=== PATIENT | female | born 1980 | race Caucasian/White ===

== ENCOUNTER 2018-07-24 09:40 | Emergency (ER) | payer MEDICAID, SELFPAY ==
[2018-07-24 09:41] VITALS: BP 122/74; PULSE 103; RESP 18; TEMP 37.1; O2SAT 98; BMI 27.4
--- NOTE | 2018-07-24 09:52 | RAD_ITS ---
STUDY: X-RAY CHEST REASON FOR EXAM: Female, 38 years old. Cough and fever. TECHNIQUE: PA and lateral views of the chest. COMPARISON: Comparison is made with prior examination dated May 05, 2015. FINDINGS: There is evidence of bilateral breast surgery. The lungs are clear and expanded. There is no demonstrated pleural abnormality. Normal size heart. Normal mediastinum and terri. Normal visualized pulmonary arteries. Normal visualized aortic arch and descending thoracic aorta. Normal visualized thoracic spine. Normal visualized ribs, clavicles, and shoulders. There is no demonstrated abnormality of the visualized soft tissue structures of the upper abdomen. RAD/Chest PA and Lateral IMPRESSION: Normal x-ray examination of the chest. Electronically Signed: Dave Rod MD at 10:24 EST , Service support ,
--- NOTE | 2018-07-24 09:59 | ED.DCSUM_ITS ---
- ER Visit Summary Date of Service: 07/24/18 Chief Complaint: Cough and fever History of Present Illness: The patient is a 38 F past medical history of prior breast cancer for which she had both bilateral mastectomies and hysterectomy. Patient states that yesterday she started having a cough and fever high as 103. With body aches and sore throat. She did get an influenza vaccination this year. She denies any nausea vomiting or diarrhea she denies any dysuria. Cough is productive. Physical Examination: Vital signs are stable. Afebrile. Temperature is 98. Pulse ox 98 on room air no hypoxia. No distress. HEENT exam TMs normal bilaterally. Posterior pharynx minimal erythema. No exudate. No swelling. No trouble breathing or swallowing. No stridor. No drooling. Airway intact. Neck nontender. No lymphadenopathy. No meningismus. Lungs clear to auscultation bilaterally. Dry cough. No rales, rhonchi or wheezing. Equal and symmetrical. Heart regular rhythm rate about 100 no murmur. Abdomen soft nontender. Moving all 4 extremities. Calves no edema. Back nontender. Skin no rashes. Neurologically awake alert with no focal motor deficits. Test Results: Chest x-ray 2 views shows no acute abnormality. No infiltrate. I did go over the films with the patient and her significant other. Emergency Department Course and Treatment: Clinically patient sounds like acute influenza. I am obtaining a chest x-ray to evaluate for possible pneumonia. Repeat exam patient was doing well at 1020 and is comfortable being discharged home. Treatment Plan: Fluids and rest. Tylenol and Motrin for fever and body aches. Follow-up as needed or return if worse. Disposition: Discharge Impression: Acute influenza This note was generated with [employer] dictation software. It may contain incorrect words, spelling, and punctuation that were not noted in review of the chart prior to signing ED Disposition - Plan for ED Patient: Disposition: Home or Assisted Living Instructions: ED Flu Referrals: Paige Miguel MD [Primary Care Provider] - 3-5 Days if not improving Additional Instructions: Plenty of fluids and rest. Tylenol and Motrin for fever and body aches. Follow-up with not improving or return to the ER if feeling a lot worse.
--- NOTE | 2018-07-24 10:06 | DCINST.ED_ITS ---
ED Disposition - Plan for ED Patient: Disposition: Home or Assisted Living Instructions: ED Flu Referrals: Paige Miguel MD [Primary Care Provider] - 3-5 Days if not improving Additional Instructions: Plenty of fluids and rest. Tylenol and Motrin for fever and body aches. Follow-up with not improving or return to the ER if feeling a lot worse.
== END 2018-07-24 10:27 | disposition home or self-care (01) ==
PROVIDERS: Emergency Provider Emergency Medicine; Family Provider Family Medicine; PCP Family Medicine
DX: J11.1 Influenza due to unidentified influenza virus with other respiratory manifestations (principal); Z85.3 Personal history of malignant neoplasm of breast; Z90.710 Acquired absence of both cervix and uterus
CPT/HCPCS: 71046; 99282

== ENCOUNTER → 2019-04-13 17:26 | Outpatient (CLI) | payer MEDICAID, SELFPAY ==
[2019-04-13 15:52] VITALS: BMI 27.4
[2019-04-20 09:45] LABS: HPV APTIMA, High Risk Negative (Negative)
== END ==
PROVIDERS: Referring Provider Obstetrics & Gynecology; Visit Provider Obstetrics & Gynecology
DX: Z12.4 Encounter for screening for malignant neoplasm of cervix (principal); R30.0 Dysuria
CPT/HCPCS: 87077; 87086; 87088; 87624; 88175; G0145

== ENCOUNTER → 2019-04-27 06:45 | Outpatient (CLI) | payer MEDICAID, SELFPAY ==
[2019-04-13 15:52] VITALS: BMI 27.4
[2019-04-27 08:00] LABS: AST(SGOT) 9 U/L (15-37); Alanine Aminotransfer ALT/SGPT 16 U/L (13-56); Albumin, Serum 3.9 g/dL (3.2-5.0); Alkaline Phosphatase 80 U/L (45-117); Anion Gap 7 (5-15); BUN 13 mg/dL (7-18); BUN/Creat Ratio 17.3 RATIO (10-20); Calcium,Total 9.1 mg/dL (8.5-10.1); Chloride 107 mmol/L (98-107); Cholesterol 223 mg/dL (200); Creatinine, Serum 0.75 mg/dL (0.55-1.02); EST Glomerular Filtration Rate 92 mL/min (>60); Est Glom Filt Rate - Afr Amer 111 mL/min (>60); Globulin 3.8 g/dL (2.2-4.2); Glucose 102 mg/dL (74-106); High Density Lipoprotein 48 mg/dL; Protein, Total 7.7 g/dL (6.4-8.2); Sodium Level 142 mmol/L (136-145); T4 Free Direct 0.73 ng/dL (0.76-1.46); Thyroid Stim Hormone (TSH) 4.37 uIU/mL (0.358-3.74); Triglycerides 124 mg/dL; Very Low Density Lipoprotein 25 mg/dL (5-40)
[2019-04-30 16:28] LABS: Vitamin D 1,25-Dihydroxy 35.8 pg/mL (19.9-79.3)
== END ==
PROVIDERS: Family Provider Family Medicine; PCP Family Medicine; Referring Provider Obstetrics & Gynecology; Visit Provider Obstetrics & Gynecology
DX: R30.0 Dysuria (principal); C50.919 Malignant neoplasm of unspecified site of unspecified female breast; Z13.220 Encounter for screening for lipoid disorders
CPT/HCPCS: 36415; 80053; 80061; 82652; 84439; 84443; 86304

== ENCOUNTER → 2019-12-08 16:35 | Outpatient (CLI) | payer MEDICAID, SELFPAY ==
[2019-12-08 12:09] VITALS: BMI 29.5
== END ==
PROVIDERS: PCP Family Medicine; Referring Provider Obstetrics & Gynecology; Visit Provider Obstetrics & Gynecology
DX: R30.0 Dysuria (principal)
CPT/HCPCS: 87077; 87086; 87088

== ENCOUNTER → 2019-12-13 12:30 | Outpatient (CLI) | payer MEDICAID, SELFPAY ==
[2019-12-08 12:09] VITALS: BMI 29.5
--- NOTE | 2019-12-13 12:31 | US_ITS ---
STUDY: ULTRASOUND OF THE FEMALE PELVIS - COMPLETE REASON FOR EXAM: Female, 39 years old. PELVIC PAIN LMP: Unknown. TECHNIQUE: Transabdominal and Transvaginal TECHNICAL QUALITY: Adequate. COMPARISON: None. FINDINGS: The uterus is retroflexed and is in a midline position. The uterus measures 5.6 x 3.7 x 2.9 cm. Normal uterine cervix. The endometrium measures 4 mm in thickness, and is hyperechoic. There is no demonstrated endometrial mass. There is a 1.7 cm fibroid. I.U.D. - The patient does not have an I.U.D. Both ovaries have been previously removed. There is no fluid in the cul-de-sac. The bladder is sonographically normal US/Pelvic (Non ) IMPRESSION: Small uterine fibroid, otherwise unremarkable study, both ovaries have been previously removed Electronically Signed: Joe Merritt MD at 13:54 EDT , Service support ,
--- NOTE | 2019-12-13 12:31 | US_ITS ---
STUDY: ULTRASOUND OF THE FEMALE PELVIS - COMPLETE REASON FOR EXAM: Female, 39 years old. PELVIC PAIN LMP: Unknown. TECHNIQUE: Transabdominal and Transvaginal TECHNICAL QUALITY: Adequate. COMPARISON: None. FINDINGS: The uterus is retroflexed and is in a midline position. The uterus measures 5.6 x 3.7 x 2.9 cm. Normal uterine cervix. The endometrium measures 4 mm in thickness, and is hyperechoic. There is no demonstrated endometrial mass. There is a 1.7 cm fibroid. I.U.D. - The patient does not have an I.U.D. Both ovaries have been previously removed. There is no fluid in the cul-de-sac. The bladder is sonographically normal US/Transvaginal Non- IMPRESSION: Small uterine fibroid, otherwise unremarkable study, both ovaries have been previously removed Electronically Signed: Joe Merritt MD at 13:54 EDT , Service support ,
--- NOTE | 2019-12-13 12:31 | US_ITS ---
STUDY: THYROID ULTRASOUND REASON FOR EXAM: Female, 39 years old. HYPOTHYROIDISM TECHNIQUE: Ultrasound evaluation of the thyroid was performed with real-time and static cr-scale imaging. COMPARISON: None. FINDINGS: RIGHT LOBE: The right lobe of the thyroid gland measures 4.8 x 1.2 x 1.5 cm. There is a homogeneous echotexture. There are no demonstrated solid, cystic or complex lesions. LEFT LOBE: The left lobe of the thyroid gland measures 4.0 x 1.2 x 1.4 cm. There is a homogeneous echotexture. There is an complex predominantly hypoechoic 1.1 x 0.9 x 0.8 cm nodule. ISTHMUS: The isthmus measures 3 mm. The regional lymph nodes are normal. US/Thyroid IMPRESSION: Normal sized homogeneous thyroid gland with a hypoechoic 1.1 cm nodule in the left lobe. Sonography cannot distinguish between benign and aggressive nodules. Since there are no previous studies available for comparison, there are a couple of options for follow-up. A six-month follow-up could be performed to assess stability. A thyroid uptake study could also performed to assess the uptake characteristics of this nodule. Electronically Signed: Joe Merritt MD at 14:00 EDT , Service support ,
== END ==
PROVIDERS: PCP Family Medicine; Referring Provider Obstetrics & Gynecology; Visit Provider Obstetrics & Gynecology
DX: R10.2 Pelvic and perineal pain (principal); E01.0 Iodine-deficiency related diffuse (endemic) goiter
CPT/HCPCS: 76536; 76830; 76856

== ENCOUNTER → 2019-12-16 15:37 | Outpatient (CLI) | payer MEDICAID, SELFPAY ==
[2019-12-08 12:09] VITALS: BMI 29.5
[2019-12-16 16:12] LABS: Absolute Lymphocyte Count 1.74 X10^3/uL (0.83-4.51); Absolute Neutrophil Count 4.3 X10^3/uL (2.0-7.7); Basophil# 0.04 X10^3/uL; Basophil% 0.6 % (0-1); Eosinophil# 0.16 X10^3/uL; Eosinophils% 2.4 % (0-5); Hematocrit 37.9 % (37-47); Hemoglobin 11.9 g/dL (12.0-15.0); Lymphocyte # 1.74 X10^3/ul (4.0); Lymphocyte % 26.3 % (19-41); Mean Corp Hgb Conc 31.4 g/dL (32-36); Mean Corpuscular Hgb 29.9 pg (27.0-32.0); Mean Corpuscular Volume 95.2 fL (81-99); Mean Platelet Vol. 10.9 fl (6.2-12.0); Monocyte# 0.34 X10^3/uL; Monocyte% 5.1 % (0-10); NRBC Flagged by Analyzer 0 % (0-5); Neutrophil # 4.31 X10^3/uL (2.7-7.7); Neutrophil % 65.3 % (47-70); Platelet Count 213 K/mm3 (150-450); RBC Distribution Width CV 13.2 % (11.6-14.6); RBC Distribution Width SD 45.6 fl (35.1-43.9); Red Blood Count 3.98 M/mm3 (4.2-5.4); White Blood Count 6.6 K/mm3 (4.4-11.0)
[2019-12-16 17:27] LABS: Thyroid Stim Hormone (TSH) 1.38 uIU/mL (0.358-3.74)
== END ==
PROVIDERS: PCP Family Medicine; Referring Provider Obstetrics & Gynecology; Visit Provider Obstetrics & Gynecology
DX: R10.2 Pelvic and perineal pain (principal); E01.0 Iodine-deficiency related diffuse (endemic) goiter
CPT/HCPCS: 36415; 84439; 84443; 85025; 86304

== ENCOUNTER → 2019-12-29 16:45 | Outpatient (CLI) | payer MEDICAID, SELFPAY ==
[2019-12-29 14:45] VITALS: BMI 28.4
--- NOTE | 2019-12-29 14:45 | ASPS_PTH ---
PATIENT: ESPINOZA CHAVEZ LOC: [facility] U#:[id number] AGE/SX: 45/F ROOM: RE12/29/[address]: Dr. Aung Waite MD : 1980 BED: DIS: SPEC #: [id number] RECD: 12/29/19 16:13 STATUS: BRENDA NELLY #: [id number] GORDON: 12/29/19 14:[address]: Aung Waite DEPT: CYTOLOGY RECD BY: Fantasma Britt ENTERED: 12/30/19 09:08 SP TYPE: ASPIRATION OTHR DR: Dr. Paige Willingham, DO Tissues: Thyroid gland, NOS Procedures: Special Stain Group II Cytology Other HEADER OPERATION: Left thyroid FNA PRE-OP DIAGNOSIS: Left thyroid nodule TISSUE SUBMITTED: Left thyroid slides x6 DIAGNOSIS CYTOLOGY Left thyroid nodule, FNA (smears): Consistent with benign follicular nodule. Adequate for evaluation. See comment. SJ:rina 12/31/19 COMMENT Correlation with clinical, radiologic findings and appropriate follow up are necessary. CYTOLOGY STUDY Slides are reviewed. CYTOLOGY GROSS Received are six smears labeled with the patient's name and designated per the requisition as left thyroid. Submitted for staining. / rina 12/30/19 TC:5 CPT: 11503
== END ==
PROVIDERS: PCP Family Medicine; Referring Provider Surgery; Visit Provider Surgery
DX: E04.1 Nontoxic single thyroid nodule (principal)
CPT/HCPCS: 88161; 88313

== ENCOUNTER 2020-06-05 00:08 | Emergency (ER) | payer MEDICAID, SELFPAY ==
[2019-12-29 14:45] VITALS: BMI 28.4
[2020-06-05 00:10] VITALS: BP 149/95; PULSE 89; RESP 18; TEMP 36.3; O2SAT 100; BMI 30.4
--- NOTE | 2020-06-05 00:19 | ED.VISSUMM ---
- ER Visit Summary Date of Service: 06/05/20 Chief Complaint: Abdominal pain History of Present Illness: The patient is a 40 F history of prior breast cancer with lumpectomy, mastectomy and reconstruction. She is also had oophorectomy, exploratory laparotomy and a prior tibia fracture surgery. Patient states yesterday she started having periumbilical abdominal pain that has now radiated and is painful in the right upper quadrant. Associated nausea but no vomiting. She denies any diarrhea, melena nor constipation. No dysuria. Her last menstrual period was 2014 when she had her oophorectomy. She denies any fever or chills. Also states she has pain in her back. No weight change. She has been eating normally. Pain feels better when she stands up. Physical Examination: Middle-aged female no acute distress vital signs are stable afebrile. She does not look septic or toxic. H EENT exam unremarkable. Neck nontender no lymphadenopathy. Lungs clear to auscultation bilaterally. Heart regular rhythm no murmur. Abdomen is soft. Nondistended. Normal bowel sounds. She is tender in the right upper quadrant. There is no Anthony sign. There is no obvious hernia or mass. There is no distention or signs of obstruction. The right lower quadrant and left side of her abdomen are nontender. There is a tattoo on her right lower quadrant. No signs of trauma. No pulsatile mass. She is moving all 4 extremities. Her back is nontender but she complains of pain also in her back in the midportion between the thoracic and lumbar area. Is across her back. Neurologically she is awake and alert. She is moving all 4 extremities. There is no edema. Test Results: CBC normal. White count 8. Hemoglobin 13. Chemistries normal normal creatinine and gap. Liver enzymes normal. Lipase normal. Repeat exam at 12:46 AM patient is doing well. Abdomen is benign. There are no peritoneal signs. She denies discussed all of her test results. She is comfortable with outpatient follow-up with her primary care physician for right upper quadrant ultrasound. At this time I do not feel this is an appendicitis. She has no signs of gallbladder infection or obstruction. Emergency Department Course and Treatment: 40-year-old female with right upper quadrant abdominal pain. She has no history of gallbladder stones or disease. She still has her gallbladder and her appendix. She has had prior abdominal and pelvic pain from fibroids and what sounds like adhesions or scar tissue. Labs will be obtained. Currently I do not think she needs a CAT scan. She was offered but did not waiting for pain or nausea at this time. Treatment Plan: Tylenol and Motrin for pain. Zofran as needed if nausea. Follow-up with your doctor for further evaluation and imaging. Disposition: Discharge Impression: Right upper quadrant abdominal pain of uncertain etiology This note was generated with [employer] dictation software. It may contain incorrect words, spelling, and punctuation that were not noted in review of the chart prior to signing ED Disposition - Plan for ED Patient: Disposition: Home or Assisted Living Referrals: Paige Willingham DO [Primary Care Provider] -
--- NOTE | 2020-06-05 00:22 | ED.DEP ---
ED Disposition - Plan for ED Patient: Disposition: Home or Assisted Living Instructions: ED Abdominal Pain Unkn Cause Fem Prescriptions: Ondansetron [Zofran Odt] 4 mg PO Q8H PRN PRN #7 tab PRN Reason: Nausea Prescription Printed Referrals: Paige Willingham DO [Primary Care Provider] - 1 Day for another exam Additional Instructions: Call follow-up with your doctors office later today. I would suggest a right upper quadrant ultrasound to evaluate the gallbladder. Tylenol and/or Motrin for pain. Zofran if needed for nausea. Return if increasing pain, fever or intractable vomiting. All your labs today were unremarkable we do not have a specific cause for your pain at this time.
[2020-06-05 00:31] LABS: Absolute Lymphocyte Count 3.14 X10^3/uL (0.83-4.51); Absolute Neutrophil Count 4.9 X10^3/uL (2.0-7.7); Basophil# 0.03 X10^3/uL; Basophil% 0.3 % (0-1); Eosinophil# 0.21 X10^3/uL; Eosinophils% 2.4 % (0-5); Hematocrit 39.9 % (37-47); Lymphocyte # 3.14 X10^3/ul (4.0); Lymphocyte % 35.7 % (19-41); Mean Corp Hgb Conc 32.6 g/dL (32-36); Mean Corpuscular Hgb 29.7 pg (27.0-32.0); Mean Corpuscular Volume 91.1 fL (81-99); Mean Platelet Vol. 11.1 fl (6.2-12.0); Monocyte% 5.7 % (0-10); NRBC Flagged by Analyzer 0 % (0-5); Neutrophil # 4.88 X10^3/uL (2.7-7.7); Neutrophil % 55.6 % (47-70); Platelet Count 245 K/mm3 (150-450); RBC Distribution Width SD 42.8 fl (35.1-43.9); Red Blood Count 4.38 M/mm3 (4.2-5.4); White Blood Count 8.8 K/mm3 (4.4-11.0)
[2020-06-05 00:40] LABS: AST(SGOT) 10 U/L (15-37); Alanine Aminotransfer ALT/SGPT 19 U/L (13-56); Alkaline Phosphatase 83 U/L (45-117); Anion Gap 6 (5-15); BUN 10 mg/dL (7-18); BUN/Creat Ratio 12.6 RATIO (10-20); Bilirubin, Direct 0.08 mg/dL (0.00-0.30); Calcium,Total 8.8 mg/dL (8.5-10.1); Chloride 108 mmol/L (98-107); Creatinine, Serum 0.79 mg/dL (0.55-1.02); EST Glomerular Filtration Rate 86 mL/min (>60); Est Glom Filt Rate - Afr Amer 104 mL/min (>60); Estimated Creatinine Clearance 79.09 ml/min; Globulin 3.9 g/dL (2.2-4.2); Glucose 105 mg/dL (74-106); Lipase 223 U/L (73-393); Potassium 3.5 mmol/L (3.5-5.1); Protein, Total 7.9 g/dL (6.4-8.2); Sodium Level 141 mmol/L (136-145)
== END 2020-06-05 01:01 | disposition home or self-care (01) ==
LOC: ED 00:28
PROVIDERS: Emergency Provider Emergency Medicine; PCP Family Medicine
DX: R10.11 Right upper quadrant pain (principal); Z85.3 Personal history of malignant neoplasm of breast; Z90.721 Acquired absence of ovaries, unilateral; M54.9 Dorsalgia, unspecified
CPT/HCPCS: 80048; 80076; 83690; 85025; A4216

== ENCOUNTER 2020-06-05 15:46 | Emergency (ER) | payer MEDICAID, SELFPAY ==
[2020-06-05 00:10] VITALS: BMI 30.4
[2020-06-05 15:47] VITALS: BP 134/93; PULSE 81; RESP 16; TEMP 36.3; O2SAT 99; BMI 28.3
--- NOTE | 2020-06-05 16:10 | CT_ITS ---
STUDY: CTA CHEST REASON FOR EXAM: Female, 40 years old. Acute shortness of breath, history of breast cancer RADIATION DOSAGE (If Supplied By Facility): CTDIvol = ( 13.17 ) mGy, DLP = ( 1514.50 ) mGycm TECHNIQUE: The examination was performed with the intravenous administration of IV 100mL Isovue-370. Post-processing of the angiographic images was performed, with multiplanar reformation and 3D reconstruction. Individualized dose optimization techniques were used for this CT. COMPARISON: None. FINDINGS: Bilateral breast implants intact and free of complication Normal enhancement of the main pulmonary artery and right and left pulmonary arteries. Normal enhancement of the bilateral peripheral pulmonary arteries. There is no demonstrated pulmonary embolism. Normal thoracic aorta and visualized great vessels. There is no demonstrated aortic dissection. Normal heart and pericardium. Normal mediastinum. Normal hilar regions. Normal visualized trachea and bronchi. The lungs are well expanded. Normal pulmonary parenchyma. Normal pleura. Normal chest wall structures. Normal osseous structures. A CT of the abdomen and pelvis was performed and reported separately CT/CTA Chest W/WO Contrast IMPRESSION: Normal CTA chest examination, without a demonstrated pulmonary embolism or arterial dissection. Electronically Signed: Joe Merritt MD at 17:34 EST , Service support ,
--- NOTE | 2020-06-05 16:10 | CT_ITS ---
STUDY: CT ABDOMEN AND PELVIS WITH CONTRAST REASON FOR EXAM: Female, 40 years old. Right upper quadrant pain, history of breast cancer RADIATION DOSAGE (If Supplied By Facility): CTDIvol = ( 13.17 ) mGy, DLP = ( 1514.50 ) mGycm TECHNIQUE: Transaxial images were obtained from the dome of the diaphragm to the symphysis pubis without oral contrast. IV 100mL Isovue-370 was administered. Sagittal and coronal images were reconstructed. Individualized dose optimization techniques were used for this CT. COMPARISON: 2017 FINDINGS: The visualized lung bases are unremarkable. The visualized portions of the heart are within normal limits. Bilateral breast implants free of complication Liver is unremarkable aside from 2 separate hemangiomas in the right lobe of the liver unchanged from the previous study. Larger measures 4.4 cm in the inferior aspect, smaller measures 2.4 cm. Both become much less conspicuous on the delayed images. Normal gallbladder and extrahepatic biliary system. Normal spleen. Normal pancreas. Normal bilateral adrenal glands. No obstructive uropathy, stable subcentimeter cysts in the right kidney. Normal visualized stomach. Normal small intestine. Normal colon. There is non-visualization of the appendix. Normal abdominal aorta. Normal inferior vena cava. Normal retroperitoneum. Normal urinary bladder. Normal visualized uterus. No suspicious cystic mass or free fluid Normal abdominal wall. Normal osseous structures. CT/Abdomen/Pelvis W IV Cont ONLY IMPRESSION: No suspicious solid organ abnormality, stable hemangiomas in the right lobe of the liver unchanged from 2017 No free intraperitoneal fluid, air, or suspicious adenopathy No CT evidence of an acute inflammatory process Normal bony structures Electronically Signed: Joe Merritt MD at 17:29 EST , Service support ,
--- NOTE | 2020-06-05 16:11 | ED.VIS.GEN ---
History of Present Illness Chief Complaint: Abd Pain Informant: Patient Narrative: 40-year-old female presents for evaluation of upper abdominal pain. Patient tells me that symptoms began when she woke up yesterday morning was more of a generalized abdominal ache but shortly thereafter realized it was more in the right upper quadrant that would occasionally shoot to the right flank. She notes some nausea and a feeling of anorexia. She came to the emergency room last night and had normal labs. She is advised to follow-up with primary care. She did that today and had a right upper quadrant ultrasound that reportedly showed a 4 cm and 3 cm mass. In 2014 she was diagnosed with invasive ductal carcinoma of the breast. She underwent mastectomy and nephrectomy. She completed treatments in 2017. She is been on hormonal therapy since and follows with Dr. Ward with [facility] oncology. In 2017 it appears that she had a CT of the abdomen pelvis that demonstrated a 4 cm 3 cm mass. It is felt most likely to be hemangioma but recommended further imaging. She does not believe that any further imaging was ordered. However using online resources (clinic think) I see that she has had liver MRI and subsequent abdominal CT of the abdomen pelvis with no metastatic disease. She denies at this time any diarrhea or fever. No urinary symptoms. - Past Medical History (1) Anxiety Status: Chronic (2) Chronic bladder pain Status: Chronic Comment: nl ua, recommend urogyn consult. ca 125 ordered due to exam tenderness (3) GERD (gastroesophageal reflux disease) Status: Chronic (4) Invasive ductal carcinoma of breast Status: Chronic Comment: Stage 1, Dx 01/2015, BRCA 2, s/p bilateral mastectomy and BSO (5) Left thyroid nodule Status: Acute (6) Thyromegaly Status: Chronic Comment: labs and ultrasound. on synthroid Past Medical History - Allergies and Home Meds Allergies/Adverse Reactions: Allergies hydrocodone bitartrate [From Vicodin] Allergy (Verified 06/05/20 15:49) Shortness of breath Penicillins Allergy (Verified 06/05/20 15:49) Rash honey Adverse Reaction (Verified 06/05/20 15:49) Hives Primary Care Physician: Paige Willingham DO [Primary Care Provider] - Prior records reviewed: Yes Surgical History: - - Esure, L tib/fib fracture with hardware, R breast lumpectomy and LNDx. Lives: With Family Smoking Status: Former smoker Drugs: None - Family History Maternal Family History: Family History (Last Reviewed 12/29/19 @ 14:45 by Ethel Burgos) Grandfather Prostate cancer Father Hypertension Family History: Reports: No pertinent history Paternal Family History: Family History (Last Reviewed 12/29/19 @ 14:45 by Ethel Burgos) Grandfather Prostate cancer Father Hypertension Family History: Reports: No pertinent history Review of Systems General: Denies: Chills, Fever, Sweats Eyes: Denies: Visual changes - bilaterally, Diplopia ENT: Denies: Rhinorrhea, Sore throat Cardiovascular: Denies: Chest pain, Palpitations Respiratory: Denies: Dyspnea, Cough, Dyspnea on exertion Gastrointestinal: Reports: Abdominal pain, Nausea. Denies: Vomiting, Diarrhea, Melena, Hematochezia Genitourinary: Denies: Dysuria, Hematuria, Frequency Musculoskeletal: Denies: Back pain, Extremity Pain Skin: Denies: Rash, Wounds Neurological: Denies: Headache, Weakness, Numbness Physical Exam Vital Signs/Narrative: Vital Signs Temp Pulse Resp BP Pulse Ox 06/05/20 15:47 97.3 F L 81 16 134/93 H 99 Inital Vital Signs reviewed: Yes General: Well nourished, Well developed, No Acute Distress Head: Normocephalic, Atraumatic Eyes: Perrl, EOMI ENT: Moist mucous membranes, No rhinorrhea Neck: Supple, Nontender Cardiovascular: Regular rate, Regular rhythm, No murmurs Respiratory: No distress, CTA bilaterally, Chest nontender Abdomen: Soft, Nondistended, Normal bowel sounds, Tender - Tender to palpation right upper quadrant but the patient states it feels almost like it is more underneath her lower ribs. Back: Nontender, Normal Inspection Extremities: Nontender, No edema Skin: Normal color, No rash Neurological: Alert, Oriented x3, Cranial nerves II-XII grossly intact, Normal Strength, Normal Sensation Psychological: Normal affect, Normal Mood Diagnostic/Tx/Re-eval Clinical Impression(s) from Imaging Studies Abdomen/Pelvis CT 06/05/20 16:10 IMPRESSION: No suspicious solid organ abnormality, stable hemangiomas in the right lobe of the liver unchanged from 2017 No free intraperitoneal fluid, air, or suspicious adenopathy No CT evidence of an acute inflammatory process Normal bony structures Electronically Signed: Joe Merritt MD at 17:29 EST , Service support , Chest CTA 06/05/20 16:10 IMPRESSION: Normal CTA chest examination, without a demonstrated pulmonary embolism or arterial dissection. Electronically Signed: Joe Merritt MD at 17:34 EST , Service support , Laboratory Last Values Urine Color Yellow (Yellow) 06/05/20 16:25 Urine Clarity Sl. Cloudy (Clear) 06/05/20 16:25 Urine pH 5.0 (5.0 - 8.0) 06/05/20 16:25 Ur Specific [place] 1.020 (1.002-1.030) 06/05/20 16:25 Urine Protein Negative mg/dl (Negative) 06/05/20 16:25 Urine Glucose (UA) Normal mg/dl (Normal) 06/05/20 16:25 Urine Ketones Negative mg/dl (Negative) 06/05/20 16:25 Urine Occult Blood 10 /ul (Negative) H 06/05/20 16:25 Urine Nitrite Negative (Negative) 06/05/20 16:25 Urine Bilirubin Negative mg/dL (Negative) 06/05/20 16:25 Urine Urobilinogen Normal mg/dl (Normal) 06/05/20 16:25 Ur Leukocyte Esterase 500 /ul (Negative) H 06/05/20 16:25 Urine RBC 0-5 SEEN /hpf (0-5) 06/05/20 16:25 Urine WBC 25-50 SEEN /hpf (0-5) 06/05/20 16:25 Ur Squamous Epith Cells 10-25 SEEN /hpf (5-10) 06/05/20 16:25 Amorphous Sediment 1+ URATE 06/05/20 16:25 Urine Bacteria 0 SEEN /hpf (None Seen) 06/05/20 16:25 Urine Mucus 1+ /hpf (<or=2+) 06/05/20 16:25 - Medical Decision Making Urinalysis is contaminated but no overt signs of infection. CTA of the chest to rule out mimicker of right upper quadrant abdominal pain was ordered and negative. CT of the abdomen pelvis was also negative for acute. The spots seen on her liver are proven hemangiomas in the past. When I evaluate the CT I see increased amount of stool in the right hemicolon. I think it is reasonable given the waxing and waning nature of her symptoms that we give her a bottle of magnesium citrate and see if that improves her symptoms. Patient is comfortable with this plan. She will follow up in the office with primary care. ED Disposition - Plan for ED Patient: Disposition: Home or Assisted Living Diagnosis: Acute abdominal pain, Liver hemangioma Instructions: ED Abdominal Pain Unkn Cause Fem Prescriptions: Magnesium Citrate [Citrate Of Magnesia] 300 ml PO X1 #1 bottle Prescription Printed Referrals: Paige Willingham DO [Primary Care Provider] - As Needed
[2020-06-05 16:33] LABS: Bacteria 0 SEEN /hpf (None Seen)
[2020-06-05 16:51] LABS: Color, Urine Yellow (Yellow); Glucose, Dipstick Normal (Normal); Ketone-Dipstick Negative (Negative); Leukocyte Esterase-Dipstick 500 /ul (Negative); Nitrite-Dipstick Negative (Negative); Occult Blood-Urine 10 /ul (Negative); Protein-Dipstick Negative (Negative); Urine Bilirubin Dipstick Negative (Negative); Urine Clarity Sl. Cloudy (Clear); Urine Urobilinogen Normal (Normal)
[2020-06-05 17:23] LABS: White Blood Cells 25-50 SEEN /hpf (0-5)
[2020-06-05 17:24] LABS: Amorphous Sediment 1+ URATE; Mucous, Urine 1+ /hpf (<or=2+); Red Blood Cells-Urine 0-5 SEEN /hpf (0-5); Squamous Epithelial Cells - UA 10-25 SEEN /hpf (5-10)
== END 2020-06-05 18:03 | disposition home or self-care (01) ==
PROVIDERS: Emergency Provider Emergency Medicine; PCP Family Medicine
DX: R10.9 Unspecified abdominal pain (principal); D18.03 Hemangioma of intra-abdominal structures; K21.9 Gastro-esophageal reflux disease without esophagitis; Z82.49 Family history of ischemic heart disease and other diseases of the circulatory system; Z85.3 Personal history of malignant neoplasm of breast; Z87.891 Personal history of nicotine dependence; Z88.0 Allergy status to penicillin; Z88.5 Allergy status to narcotic agent; Z90.5 Acquired absence of kidney; Z90.722 Acquired absence of ovaries, bilateral
CPT/HCPCS: 71275; 74177; 80048; 80076; 81001; 83690; 85025; 99283; 99284; Q9967; A4216

== ENCOUNTER → 2022-02-01 | Outpatient (CLI) | payer MEDICAID, SELFPAY ==
--- NOTE | 2022-02-01 17:19 | MRI_ITS ---
STUDY: MRI ABDOMEN WITH AND WITHOUT CONTRAST REASON FOR EXAM: Female, 41 years old. LIVER LESIONS ON CR.,HX BREAST CA, ABD PAIN TECHNIQUE: Standardized fat and water weighted pulse sequences were obtained in all 3 orthogonal planes post contrast administration. IV CLARISCAN 15ML was administered for the contrast portion of the examination. COMPARISON: None. FINDINGS: The visualized lung bases are unremarkable. The visualized portions of the heart are within normal limits. There are two T1 hypointense/T2 hyperintense lesions in the right liver lobe. The larger lesion measures 6.1 x 3.4 cm while the smaller measures 2.6 x 1.3 cm. Both of these lesions demonstrate nodular, peripheral, centripetal enhancement. The gallbladder is contracted. Normal spleen. Normal pancreas. Normal bilateral adrenal glands. Normal left kidney. Normal visualized stomach. Normal small intestine. Normal colon. Normal abdominal aorta. Normal inferior vena cava. Normal retroperitoneum. Normal abdominal wall. Normal osseous structures. 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 Additional smaller 2.6 cm hemangioma is also present in the right hepatic lobe. No evidence of metastatic disease in the chest or abdomen. Electronically Signed: Dany Keith MD at 23:39 EDT ,
== END | disposition home or self-care (01) ==
LOC: MRI 17:11
PROVIDERS: PCP Family Medicine; Visit Provider Nurse Practitioner Primary Care
DX: K76.9 Liver disease, unspecified (principal); D18.03 Hemangioma of intra-abdominal structures; R10.9 Unspecified abdominal pain; Z85.3 Personal history of malignant neoplasm of breast; Z15.01 Genetic susceptibility to malignant neoplasm of breast
CPT/HCPCS: 74183; A9575; A4216

== ENCOUNTER → 2022-07-18 | Outpatient (CLI) | payer MEDICAID, SELFPAY ==
[2022-07-18 10:20] LABS: Bacteria 0 SEEN /hpf (None Seen); Mucous, Urine 0 SEEN /hpf (<or=2+)
[2022-07-18 10:59] LABS: Color, Urine Yellow (Yellow); Glucose, Dipstick Normal (Normal); Ketone-Dipstick Negative (Negative); Specific Gravity, Urine 1.005 (1.002-1.030); Urine Bilirubin Dipstick Negative (Negative); Urine Clarity Sl Cloudy (Clear)
[2022-07-18 11:00] LABS: Leukocyte Esterase-Dipstick 100 /ul (Negative); Nitrite-Dipstick Positive (Negative); Occult Blood-Urine <50 /ul (Negative); Protein-Dipstick Negative (Negative); Urine Urobilinogen Normal (Normal)
[2022-07-18 11:01] LABS: Red Blood Cells-Urine 0-5 SEEN /hpf (0-5); Squamous Epithelial Cells - UA 0-5 SEEN /hpf (5-10); White Blood Cells 0-5 SEEN /hpf (0-5)
== END | disposition home or self-care (01) ==
LOC: LABSPEC 10:15
PROVIDERS: PCP Family Medicine; Visit Provider Physician Assistant
DX: R30.0 Dysuria (principal)
CPT/HCPCS: 81001; 87086

== ENCOUNTER 2022-07-28 16:29 | Emergency (ER) | payer MEDICAID, SELFPAY ==
[2022-07-28 16:30] VITALS: BP 173/69; PULSE 112; RESP 18; TEMP 36.2; O2SAT 98; BMI 29.2
--- NOTE | 2022-07-28 16:47 | EDS_ITS ---
HPI <HYACINTH Rai - Last Filed: 07/28/22 18:34> History of Present Illness Chief Complaint: Complaint Narrative Narrative: 42-year-old female states she finished Cipro 3 days ago for UTI. Last night she developed left lower abdominal pressure. She states this is typically the symptoms she gets with a UTI, not dysuria or frequency. She also felt mildly nauseous and has some left low back pain. She was concerned this could be a kidney infection. She has no history of kidney stones or pyelonephritis. No recent fever chills or vomiting. No vaginal discharge. She has had a bilateral oophorectomy due to history of breast cancer and BRCA gene. [facility] <HYACINTH Rai - Last Filed: 07/28/22 18:34> [facility] Medical History (Updated 07/28/22 @ 17:53 by HYACINTH Rai) Abdominal pain Anxiety BRCA gene mutation positive in female Breast cancer Depression Diarrhea GERD (gastroesophageal reflux disease) Invasive ductal carcinoma of breast Left flank pain Left thyroid nodule Panic attacks Polyarthritis Recurrent UTI (urinary tract infection) Shingles Thrombosed external hemorrhoid Thyromegaly Home Medications gabapentin 300 mg capsule 300 mg PO DAILY 04/13/19 [History Last Taken Unknown] letrozole 2.5 mg tablet 10 mg PO DAILY 12/27/19 [History Last Taken Unknown] ciprofloxacin HCl 500 mg tablet 500 mg PO BID #14 tabs 07/18/22 [Rx Last Taken Unknown] sulfamethoxazole 800 mg-trimethoprim 160 mg tablet (Bactrim DS) 1 tab PO BID 3 days #6 tabs 07/28/22 [Rx Last Taken Unknown] Allergy/AdvReac Type Severity Reaction Status Date / Time hydrocodone bitartrate Allergy Shortness Verified 07/28/22 16:33 [From Vicodin] of breath Penicillins Allergy Rash Verified 07/28/22 16:33 honey AdvReac Hives Verified 07/28/22 16:33 Family History Grandfather Prostate cancer Father Hypertension Surgical History S/P breast reconstruction S/P laparoscopic procedure s/p left leg surgery S/P lumpectomy, right breast S/P mastectomy, bilateral Status post biopsy of thyroid gland (~12/2019) Social History Smoking Status: Former smoker alcohol intake: current details: occasionally substance use type: does not use what type of physical activity do you participate in: none seatbelt use: always do you feel safe at home: Yes additional social history: Single-[facility] merly-boyfriend ROS <HYACINTH Rai - Last Filed: 07/28/22 18:34> ROS ED ROS Narrative Constitutional: Negative for fever, chills, malaise. CVS: Negative for palpitations, chest pain. Respiratory: Negative for shortness of breath, cough. GI: Positive for abdominal pain, nausea. No vomiting diarrhea constipation melena or hematochezia. : Negative for dysuria, hematuria or frequency. EXAM <HYACINTH Rai - Last Filed: 07/28/22 18:34> Physical Exam Narrative Exam Narrative: CONST: Patient sitting in no acute distress. NECK: Normal inspection. RESP: No respiratory distress, CTAB. CVS: Regular rate and rhythm, no murmur, no gallop. ABD: Soft With mild left lower quadrant tenderness, no guarding or rebound, nondistended. Back: Normal inspection, no CVA tenderness. SKIN: Color normal, no rash, warm, dry, intact. EXTREMITIES: Normal appearance, no pedal edema. NEURO: Oriented x4. PSYCH: Normal affect. Const Vital Signs: 07/28/22 16:30 07/28/22 18:04 Temperature 97.2 F L Temperature Source Temporal Pulse Rate 112 H Respiratory Rate 18 16 Blood Pressure 173/69 H Blood Pressure Mean 103 Pulse Ox 98 Oxygen Delivery Method Room Air <Dr. Dre Cope MD - Last Filed: 07/28/22 17:59> Physical Exam Const Vital Signs: 07/28/22 16:30 07/28/22 18:04 Temperature 97.2 F L Temperature Source Temporal Pulse Rate 112 H Respiratory Rate 18 16 Blood Pressure 173/69 H Blood Pressure Mean 103 Pulse Ox 98 Oxygen Delivery Method Room Air MDM <HYACINTH Rai - Last Filed: 07/28/22 18:34> MDM MDM Narrative Medical decision making narrative: Patient has mild left lower abdominal pressure consistent with when she has had UTIs previously. She has a benign abdominal exam and no CVA tenderness so I do not think this is a renal stone or pyelonephritis. I do not think she needs labs or imaging. UA is consistent with UTI and I prescribed 3 days of Bactrim while we await culture results. She was discharged in stable condition. Lab Data Labs: Laboratory Results - last 24 hr 07/28/22 16:45 Urine Color Yellow Urine Clarity Sl. Cloudy Urine pH 5.0 Ur Specific [place] 1.020 Urine Protein 15 H Urine Glucose (UA) Normal Urine Ketones Negative Urine Occult Blood 10 H Urine Nitrite Negative Urine Bilirubin Negative Urine Urobilinogen Normal Ur Leukocyte Esterase 500 H Urine RBC 0-5 SEEN Urine WBC 10-25 SEEN Ur Squamous Epith Cells 0-5 SEEN Amorphous Sediment 1+ URATE Urine Bacteria 0 SEEN Urine Mucus 0 SEEN <Dr. Dre Cope MD - Last Filed: 07/28/22 17:59> [facility] Lab Data Attestation: I reviewed the patient's lab results. Labs: Laboratory Results - last 24 hr 07/28/22 16:45 Urine Color Yellow Urine Clarity Sl. Cloudy Urine pH 5.0 Ur Specific [place] 1.020 Urine Protein 15 H Urine Glucose (UA) Normal Urine Ketones Negative Urine Occult Blood 10 H Urine Nitrite Negative Urine Bilirubin Negative Urine Urobilinogen Normal Ur Leukocyte Esterase 500 H Urine RBC 0-5 SEEN Urine WBC 10-25 SEEN Ur Squamous Epith Cells 0-5 SEEN Amorphous Sediment 1+ URATE Urine Bacteria 0 SEEN Urine Mucus 0 SEEN Treatment and Re-Evaluation Narrative: Seen and evaluated independently and in conjunction with physician speech therapy assistant. Agree with notes above unless documented otherwise. Patient with symptoms of cystitis, saw urgent care and was prescribed Cipro, she states after 4 days or so of taking Cipro her symptoms improved and then eventually went away but upon stopping it now she has the symptoms again. On exam she is well-appearing, afebrile, no CVA tenderness benign abdomen, no vomiting or fevers. Consistent with cystitis according to urinalysis, she does not have pyelonephritis at this time, and Cipro is no longer first-line antibiotics due to increased resistance patterns of E. coli. Patient has done well multiple times in the past with a sulfa medication so we are prescribing her 3 days of Bactrim, she is already following up with urology because of recurrent UTIs which I think is reasonable as well. We are sending a new culture. Discharge Plan Triage Chief Complaint: Complaint ED Midlevel Provider: Aline Parker ED Provider: Dre Cope Dx/Rx/DC Orders Clinical Impression: UTI (urinary tract infection) Instructions: ED Cystitis Female Adult Prescriptions: New sulfamethoxazole-trimethoprim [Bactrim DS] 800-160 mg tablet 1 tab PO BID 3 Days Qty: 6 0RF No Action gabapentin 300 mg capsule 300 mg PO DAILY letrozole 2.5 mg tablet 10 mg PO DAILY ciprofloxacin HCl 500 mg tablet 500 mg PO BID Qty: 14 0RF Primary Care Provider: Paige Willingham Referrals: Paige Willingham DO [Primary Care Provider] - Activity Restrictions/Additional Instructions: Please have your primary care doctor follow-up on the urine culture. Disposition Disposition: Home, Self Care Discharge Date/Time: 07/28/22 18:04
[2022-07-28 16:54] LABS: Bacteria 0 SEEN /hpf (None Seen); Mucous, Urine 0 SEEN /hpf (<or=2+)
[2022-07-28 17:04] LABS: Color, Urine Yellow (Yellow); Glucose, Dipstick Normal (Normal); Ketone-Dipstick Negative (Negative); Leukocyte Esterase-Dipstick 500 /ul (Negative); Nitrite-Dipstick Negative (Negative); Occult Blood-Urine 10 /ul (Negative); Protein-Dipstick 15 mg/dl (Negative); Urine Bilirubin Dipstick Negative (Negative); Urine Clarity Sl. Cloudy (Clear); Urine Urobilinogen Normal (Normal)
[2022-07-28 17:16] LABS: Amorphous Sediment 1+ URATE; Red Blood Cells-Urine 0-5 SEEN /hpf (0-5); Squamous Epithelial Cells - UA 0-5 SEEN /hpf (5-10); White Blood Cells 10-25 SEEN /hpf (0-5)
[2022-07-28] MEDS: Smz/Tmp Ds Tablet 1 TABLET PO (18:02)
[2022-07-28 18:04] VITALS: RESP 16
== END 2022-07-28 18:04 | disposition home or self-care (01) ==
PROVIDERS: Physician Assistant; Emergency Provider Emergency Medicine; PCP Family Medicine; Visit Provider Emergency Medicine
DX: N39.0 Urinary tract infection, site not specified (principal); Z87.891 Personal history of nicotine dependence; Z85.3 Personal history of malignant neoplasm of breast; F32.A Depression, unspecified; F41.9 Anxiety disorder, unspecified; K21.9 Gastro-esophageal reflux disease without esophagitis
CPT/HCPCS: 81001; 87086; 99282

== ENCOUNTER 2023-11-09 14:10 | Observation (INO) | payer MEDICAID, SELFPAY ==
[2023-11-09] VITALS (10 sets, daily range): BP systolic 102–146; BP diastolic 69–89; PULSE 47–98; RESP 16–18; TEMP 36.1–37; O2SAT 97–100; BMI 31.0
--- NOTE | 2023-11-09 14:43 | CT_ITS ---
ACR Level 3 findings have been noted. An addendum which confirms receipt of the report will follow. HISTORY: RLQ pain. TECHNIQUE: Helically acquired images were obtained of the abdomen and pelvis after the intravenous administration of 100 mL Isovue-370. A radiation dose optimization technique was used for this scan. 443 images. COMPARISON: 06/05/2020. FINDINGS: LOWER CHEST: Lung bases clear. BOWEL: 8 mm fluid-filled appendix with mild periappendiceal stranding. Small bowel and colon nondilated. PERITONEUM: No gross free air, periappendiceal fluid collection, or significant ascites. LIVER: 2.7 cm and 5 cm masses with peripheral nodular enhancement in the right lobe, mildly decreased in size. GALLBLADDER/BILIARY TREE: Tiny gallstone again seen. SPLEEN/PANCREAS: Homogeneous and nonenlarged. KIDNEYS/ADRENAL GLANDS: Unremarkable. VESSELS: No abdominal aortic aneurysm. PELVIC ORGANS: Unremarkable. BONES: Intact. CT/Abdomen/Pelvis W IV Cont ONLY IMPRESSION: Acute appendicitis with a mildly dilated appendix and surrounding inflammation. Mildly decreased size of hepatic hemangiomas. Cholelithiasis. Electronically Signed: Cathryn Lunsford MD at 15:34 EDT ,
--- NOTE | 2023-11-09 14:44 | ED.VIS.GI ---
HPI HPI - GI History of Present Illness Chief Complaint: Abd Pain Informant: patient Narrative Narrative: 43-year-old female presenting to the emergency room chief complaint of abdominal pain. Patient states yesterday she felt rather well. Today when she woke up she had some periumbilical abdominal discomfort as the days progressed seems to be more so in the right lower quadrant. She notes mild degree of anorexia and nausea. She notes pain in the right lower quadrant is worse with coughing and laughing. She tried to go to work but it continued to hurt so she came to the emergency department. She has had prior bilateral oophorectomy secondary to invasive ductal carcinoma of the breast. She denies any urinary symptoms. She states that she had 2 bowel movements this morning which is very normal for her and that the stool appeared normal. She denies fever. She notes some radiation to the low back. She does not currently wish anything for pain or nausea. [facility] Medical History Recurrent UTI (urinary tract infection) Shingles Polyarthritis Panic attacks Depression Diarrhea Abdominal pain Left flank pain Thrombosed external hemorrhoid Left thyroid nodule GERD (gastroesophageal reflux disease) Anxiety Thyromegaly BRCA gene mutation positive in female Breast cancer Invasive ductal carcinoma of breast Home Medications ?Medication ?Instructions ?Recorded ?Last Taken ?Type gabapentin 300 mg capsule 300 mg PO Q12H 04/13/19 11/09/23 History famotidine 20 mg tablet 20 mg PO BID 11/09/23 Unknown History Allergy/AdvReac Type Severity Reaction Status Date / Time hydrocodone bitartrate (From Allergy Shortness Verified 11/09/23 14:11 Vicodin) of breath Penicillins Allergy Rash Verified 11/09/23 14:11 honey AdvReac Hives Verified 11/09/23 14:11 Family History Grandfather Prostate cancer Father Hypertension Surgical History Status post biopsy of thyroid gland (~12/2019) S/P laparoscopic procedure S/P breast reconstruction S/P mastectomy, bilateral S/P lumpectomy, right breast s/p left leg surgery Social History Smoking Status: Former smoker alcohol intake: current details: occasionally substance use type: does not use what type of physical activity do you participate in: none seatbelt use: always do you feel safe at home: Yes additional social history: [facility] merly-boyfriend ROS ROS ED Constitutional Constitutional ED: Denies chills, fever(s) or weight loss Eyes Eyes: Denies change in vision or diplopia ENT ENT ED: Denies ear pain, rhinorrhea or sore throat Cardiovascular Cardiovascular: Denies chest pain, orthopnea, palpitations or racing heartbeat Respiratory/Chest Respiratory/Chest: Denies cough, dyspnea or orthopnea Gastrointestinal Gastrointestinal: Reports abdominal pain and nausea; Denies constipation, diarrhea or vomiting Genitourinary Genitourinary ED: Denies dysuria, hematuria or urinary frequency Musculoskeletal Musculoskeletal: Denies arthralgias or myalgias Integumentary Denies abscess or rash Neurologic Neurologic: Denies headache(s) or weakness Psychiatric Psychiatric: Denies anxiety, depression, suicidal ideation or suicidal thoughts Endocrine Endocrinology: Denies polydipsia, polyphagia or polyuria Allergic/Immunologic Allergic/Immunologic ED: Denies mouth swelling, tongue swelling or urticaria EXAM Physical Exam Const Vital Signs: 11/09/23 14:10 Temperature 98.3 F Temperature Source Temporal Pulse Rate 98 Respiratory Rate 16 Blood Pressure 146/89 H Blood Pressure Mean 108 Pulse Ox 98 Oxygen Delivery Method Room Air Positive well nourished and well developed General Appearance ED: well developed HEENT Reports normocephalic, head/scalp atraumatic and moist mucous membranes Eyes PERRL and EOMs intact bilaterally Neck no lymphadenopathy, supple and no JVD Resp normal respiratory effort and clear to auscultation bilaterally Cardio regular rate, regular rhythm and no murmurs GI Inspection: Negative for abdominal distention Auscultation: hypoactive bowel sounds Palpation: soft, tender RLQ and guarding; Negative for rigid, hernia, mass or rebound tenderness present Back/Spine no CVA tenderness and normal ROM Extremity normal to inspection General Extremety ED: Negative for edema General Extremity: Negative for edema Neuro oriented x3 and CN's II-XII intact bilaterally Sensorium / Orientation: alert Motor Exam: strength 5/5 throughout Psych mental status grossly normal Mood & Affect: Negative for depressed or tearful Skin no rashes or lesions noted and no wounds MDM MDM MDM Narrative Medical decision making narrative: Patient initially declined pain and nausea medications. White count returned 0.2 BMP negative liver enzymes show slightly elevated lipase at 90. CT then pelvis with IV contrast was obtained which demonstrates acute appendicitis. Noted hemangiomas. Patient was given Cipro and Flagyl due to penicillin allergy. At this time she was started on normal saline and we talked about pain medication and she will receive morphine and Zofran. Patient presenting to the ER with Dr. Irwin. History & Record Review Discussion w/independent historian: Patient Lab Data Attestation: I reviewed the patient's lab results. Labs: Laboratory Results - last 24 hr 11/09/23 11/09/23 14:20 15:30 WBC 12.2 H RBC 4.28 Hgb 12.8 Hct 39.2 MCV 91.6 MCH 29.9 MCHC 32.7 RDW Std Deviation 42.7 RDW Coeff of Reji 12.9 Plt Count 222 MPV 11.3 Immature Gran % (Auto) 0.200 Neut % (Auto) 68.8 Lymph % (Auto) 24.9 [place] % (Auto) 5.9 Eos % (Auto) 0.0 Baso % (Auto) 0.2 Absolute Neuts (auto) 8.4 H Absolute Lymphs (auto) 3.03 Nucleated RBC % 0 Sodium 139 Potassium 3.6 Chloride 107 Carbon Dioxide 27.0 Anion Gap 5 BUN 10 Creatinine 0.77 Estim Creat Clear Calc 94.98 Est GFR (MDRD) Af Amer 106 Est GFR (MDRD) Non-Af 88 BUN/Creatinine Ratio 13.0 Glucose 106 Calcium 9.4 Total Bilirubin 0.50 Direct Bilirubin 0.13 AST 14 L ALT 27 Alkaline Phosphatase 71 Total Protein 7.6 Albumin 4.0 Globulin 3.6 Lipase 90 H Urine Color Yellow Urine Clarity Clear Urine pH 7.0 Ur Specific [place] 1.010 Urine Protein Negative Urine Glucose (UA) Normal Urine Ketones Negative Urine Occult Blood Negative Urine Nitrite Negative Urine Bilirubin Negative Urine Urobilinogen Normal Ur Leukocyte Esterase 100 H Urine RBC 0 SEEN Urine WBC 0-5 SEEN Ur Squamous Epith Cells 0-5 SEEN Urine Bacteria 0 SEEN Urine Mucus 0 SEEN Radiography Diagnostic Testing: Clinical Impression(s) from Imaging Studies Abdomen/Pelvis CT 11/09/23 14:43 IMPRESSION: Acute appendicitis with a mildly dilated appendix and surrounding inflammation. Mildly decreased size of hepatic hemangiomas. Cholelithiasis. Electronically Signed: Cathryn Lunsford MD at 15:34 EDT , ADDENDUM: 11/09/23 1548 IMPRESSION: Acute appendicitis with a mildly dilated appendix and surrounding inflammation. Mildly decreased size of hepatic hemangiomas. Cholelithiasis. N.B. : Miguel Vance DO, confirmed on 11/09/2023 15:41:11 (ET) that the healthcare facility has received the radiology report. Electronically Signed: Cathryn Lunsford MD at 15:34 EDT , Management Discussion w/another healthcare provider: Cardiovascular Physician Assistant (Sophie (Dr. Irwin)) Discharge Plan Disposition Disposition: Acute Care Hospital [facility] Discharge Date/Time: 11/09/23 16:11
[2023-11-09 14:51] LABS: Absolute Lymphocyte Count 3.03 X10^3/uL (0.83-4.51); Absolute Neutrophil Count 8.4 X10^3/uL (2.0-7.7); Basophil# 0.03 X10^3/uL; Basophil% 0.2 % (0-1); Hematocrit 39.2 % (37-47); Hemoglobin 12.8 g/dL (12.0-15.0); Lymphocyte # 3.03 X10^3/ul (0.83-4.51); Lymphocyte % 24.9 % (19-41); Mean Corp Hgb Conc 32.7 g/dL (32-36); Mean Corpuscular Hgb 29.9 pg (27.0-32.0); Mean Corpuscular Volume 91.6 fL (81-99); Mean Platelet Vol. 11.3 fl (6.2-12.0); Monocyte# 0.72 X10^3/uL; Monocyte% 5.9 % (0-10); NRBC Flagged by Analyzer 0 % (0-5); Neutrophil # 8.35 X10^3/uL (2.7-7.7); Neutrophil % 68.8 % (47-70); Platelet Count 222 K/mm3 (150-450); RBC Distribution Width CV 12.9 % (11.6-14.6); RBC Distribution Width SD 42.7 fl (35.1-43.9); Red Blood Count 4.28 M/mm3 (4.2-5.4); White Blood Count 12.2 K/mm3 (4.4-11.0)
[2023-11-09 15:20] LABS: AST(SGOT) 14 U/L (15-37); Alanine Aminotransfer ALT/SGPT 27 U/L (13-56); Alkaline Phosphatase 71 U/L (45-117); Anion Gap 5 (5-15); BUN 10 mg/dL (7-18); Bilirubin, Direct 0.13 mg/dL (0.00-0.30); Calcium,Total 9.4 mg/dL (8.5-10.1); Chloride 107 mmol/L (98-107); Creatinine, Serum 0.77 mg/dL (0.55-1.02); EST Glomerular Filtration Rate 88 mL/min (>60); Est Glom Filt Rate - Afr Amer 106 mL/min (>60); Estimated Creatinine Clearance 94.98 ml/min; Globulin 3.6 g/dL (2.2-4.2); Glucose 106 mg/dL (74-106); Lipase 90 U/L (13-75); Potassium 3.6 mmol/L (3.5-5.1); Protein, Total 7.6 g/dL (6.4-8.2); Sodium Level 139 mmol/L (136-145)
--- NOTE | 2023-11-09 15:37 | PCM.HP.STD ---
HPI - General General Date of Admission: 11/09/23 HPI Narrative ESPINOZA CHAVEZ, is a 43 F who presents due to right lower quadrant pain starting this morning. Patient woke up with mid abdominal pain at 6 AM and did move to the right lower quadrant. Patient did attempt to go to work however had to leave work due to increasing pain. Patient had normal bowel movement in the morning. Patient CT abdomen pelvis showed acute appendicitis. Patient white blood count of 12.2 getting Cipro and Flagyl IV in the ER for acute appendicitis. Patient's only abdominal surgeries laparoscopy and oophorectomy, as she had history of breast cancer in 2014 [facility] Medical History Recurrent UTI (urinary tract infection) Shingles Polyarthritis Panic attacks Depression Diarrhea Abdominal pain Left flank pain Thrombosed external hemorrhoid Left thyroid nodule GERD (gastroesophageal reflux disease) Anxiety Thyromegaly BRCA gene mutation positive in female Breast cancer Invasive ductal carcinoma of breast Home Medications ?Medication ?Instructions ?Recorded ?Last Taken ?Type gabapentin 300 mg capsule 300 mg PO Q12H 04/13/19 11/09/23 History famotidine 20 mg tablet 20 mg PO BID 11/09/23 Unknown History Allergy/AdvReac Type Severity Reaction Status Date / Time hydrocodone bitartrate (From Allergy Shortness Verified 11/09/23 14:11 Vicodin) of breath Penicillins Allergy Rash Verified 11/09/23 14:11 honey AdvReac Hives Verified 11/09/23 14:11 Family History Grandfather Prostate cancer Father Hypertension Surgical History Status post biopsy of thyroid gland (~12/2019) S/P laparoscopic procedure S/P breast reconstruction S/P mastectomy, bilateral S/P lumpectomy, right breast s/p left leg surgery Social History Smoking Status: Former smoker alcohol intake: current details: occasionally substance use type: does not use what type of physical activity do you participate in: none seatbelt use: always do you feel safe at home: Yes additional social history: [facility] merly-boyfriend Vital Signs Vital Signs Vital Signs: 11/09/23 14:10 Temperature 98.3 F Temperature Source Temporal Pulse Rate 98 Respiratory Rate 16 Blood Pressure 146/89 H Blood Pressure Mean 108 Pulse Ox 98 Oxygen Delivery Method Room Air Weight Weight: 175 lb 2 oz Body Mass Index (BMI) 31.0 Physical Exam Const alert, oriented x3 and no apparent distress HEENT normocephalic and head/scalp atraumatic Resp normal respiratory effort Cardio regular rate GI soft to palpation; Negative for non-distended Palpation: tender RLQ and Rovsing's sign; Negative for guarding Extremity no clubbing, cyanosis or edema Neuro CN's II-XII intact bilaterally Psych mental status grossly normal Results Lab / Micro Data 11/09/23 14:20 11/09/23 14:20 Labs: Laboratory Results - last 24 hr 11/09/23 14:20: WBC 12.2 H, RBC 4.28, Hgb 12.8, Hct 39.2, MCV 91.6, MCH 29.9, MCHC 32.7, RDW Std Deviation 42.7, RDW Coeff of Reji 12.9, Plt Count 222, MPV 11.3, Immature Gran % (Auto) 0.200, Neut % (Auto) 68.8, Lymph % (Auto) 24.9, [place] % (Auto) 5.9, Eos % (Auto) 0.0, Baso % (Auto) 0.2, Absolute Neuts (auto) 8.4 H, Absolute Lymphs (auto) 3.03, Nucleated RBC % 0, Sodium 139, Potassium 3.6, Chloride 107, Carbon Dioxide 27.0, Anion Gap 5, BUN 10, Creatinine 0.77, Estim Creat Clear Calc 94.98, Est GFR (MDRD) Af Amer 106, Est GFR (MDRD) Non-Af 88, BUN/Creatinine Ratio 13.0, Glucose 106, Calcium 9.4, Total Bilirubin 0.50, Direct Bilirubin 0.13, AST 14 L, ALT 27, Alkaline Phosphatase 71, Total Protein 7.6, Albumin 4.0, Globulin 3.6, Lipase 90 H Imaging Radiology Impression Abdomen/Pelvis CT 11/09/23 14:43 IMPRESSION: Acute appendicitis with a mildly dilated appendix and surrounding inflammation. Mildly decreased size of hepatic hemangiomas. Cholelithiasis. Electronically Signed: Cathryn Lunsford MD at 15:34 EDT , Assessment & Plan Assessment/Plan (1) Acute appendicitis: PLAN: Plan 1. Discussed procedure laparoscopic appendectomy, possible open, possible bowel resection along with the risk but not limited to bleeding, infection/abscess, injury to another organ (small bowel, colon, etc.), adhesion, hernia at incision sites, and anesthesia. Patient no further question this time. Milly Irwin M.D. Pager: [phone] [facility] [address] [place] [address], [address] [place] [address] Office: [phone]
[2023-11-09 15:38] LABS: Bacteria 0 SEEN /hpf (None Seen); Mucous, Urine 0 SEEN /hpf (<or=2+); Red Blood Cells-Urine 0 SEEN /hpf (0-5)
[2023-11-09 15:47] LABS: Color, Urine Yellow (Yellow); Glucose, Dipstick Normal (Normal); Ketone-Dipstick Negative (Negative); Leukocyte Esterase-Dipstick 100 /ul (Negative); Nitrite-Dipstick Negative (Negative); Occult Blood-Urine Negative /ul (Negative); Protein-Dipstick Negative (Negative); Urine Bilirubin Dipstick Negative (Negative); Urine Clarity Clear (Clear); Urine Urobilinogen Normal (Normal)
[2023-11-09] MEDS: Ciprofloxacin 400 MG/200 ML BAG 200 MG IV (15:53)
[2023-11-09] MEDS: Morphine 4 MG/ML Syringe IV (15:53)
[2023-11-09] MEDS: Ondansetron 4 MG/2 ML Vial IV (15:53)
[2023-11-09 16:04] LABS: Squamous Epithelial Cells - UA 0-5 SEEN /hpf (5-10); White Blood Cells 0-5 SEEN /hpf (0-5)
--- NOTE | 2023-11-09 16:10 | ED.RN ---
LO SENT WITH PT
[2023-11-09] MEDS: 0.9% Normal Saline (1000mL) 1,000 ML 15 ML IV (16:23)
[2023-11-09] MEDS: metroNIDAZOLE 500 MG/100 ML BAG 100 MG IV (16:30)
--- NOTE | 2023-11-09 16:50 | APP_PTH ---
PATIENT: ESPINOZA CHAVEZ LOC: [facility]3 U#:[id number] AGE/SX: 43/F ROOM: DE312 RE11/09/[address]: Dr. Milly Irwin MD : 1980 BED: 1 DIS: 11/09/2023 SPEC #: [id number] RECD: 11/10/23 07:35 STATUS: BRENDA VILLEGAS #: [id number] GORDON: 11/09/23 16:[address]: Milly Irwin DEPT: SURGICAL PATHOLOGY RECD BY: Fantasma Britt ENTERED: 11/10/23 09:06 SP TYPE: APPENDIX OTHR DR: Dr. Paige Willingham, DO Tissues: Appendix, NOS Procedures: Surgery Specimen Level III HEADER OPERATION: Laparoscopic, appendectomy PRE-OP DIAGNOSIS: Acute appendicitis TISSUE SUBMITTED: Appendix MICROSCOPIC DIAGNOSIS Appendix, appendectomy: Acute appendicitis. ALONSO/ 11/11/2023 MICROSCOPIC DESCRIPTION Slides are reviewed. GROSS DESCRIPTION Received in fixative is one container labeled with the patient's name and designated appendix. The specimen consists of an appendix measuring 6.5 cm in length and 1.0 cm in average diameter. No gross perforations are seen. Serial sections reveal a patent lumen. No mass lesion is identified. Freezing Machine Operator sections are submitted in one cassette. / AM: 11/10/2023 TC:2 CPT: 01520
[2023-11-09] MEDS: Bupivacaine Mpf 0.5% 30 ML VIAL (17:10)
--- NOTE | 2023-11-09 17:16 | OP.PCM_ITS ---
Report of Operation Date of Procedure: 11/09/23 Pre-Operative Diagnosis: acute appendicitis Surgery/Procedure Performed:: Laparoscopic appendectomy Surgeon: Milly Irwin Type of Anesthesia: General/Supplemental Anesthesiologist: El Pierce Special Medications: Cipro 400 mg and Flagyl 500 mg IV for acute appendicitis Specimen's removed: Appendix Estimated Blood Loss (mL): 10 cc Description of Procedure: Indications: 43-year-old female presented to the ER with new right lower quadrant pain this morning. On workup she was found to have acute appendicitis on CT and a leukocytosis of 12. Patient was started on antibiotics in the ER for acute appendicitis-Cipro 400 mg IV x 1 and Flagyl 500 mg x 1 Description of the procedure: The patient was placed on operating table in supine position. General anesthesia was induced. A timeout was completed verifying correct patient, procedure, position and special equipment prior to beginning procedure. Abdomen was prepped and draped in usual sterile fashion. Incision was made in the natural skin line below the umbilicus with a 15 blade scalpel. The fascia was elevated and incised. Entry into the peritoneum was confirmed visually and no bowel was noted in the vicinity of the incision. The Navas trocar was placed under direct vision. Abdomen insufflated with a pressure of 12-15 mmHg. Patient tolerated insertion well. The scope was inserted and the abdomen inspected. No injuries from initial trocar placement were noted. Minimal amount of fluid was seen in the right lower quadrant. An direct visualization 2 -5 mm trocars were placed one above the symphysis pubis and below the hairline and one in the left lower quadrant lateral to the rectus muscle. Care is taken to avoid injury to the bladder and inferior epigastric vessels. The table was placed in Trendelenburg position with the right side elevated. The appendix was grasped with atraumatic grasper and elevated. It was noted to be inflamed. A window was developed in the mesoappendix at the point between the base of the appendix and the cecum. An endoscopic 45 mm linear cutting stapler blue load was then used to divide and staple the base of the appendix. Enseal was used to divide the mesoappendix. The appendix was withdrawn into the Navas trocar after being placed endoscopi víctor retrieval bag. Appendix was sent to pathology. The appendiceal stump was then irrigated and hemostasis was assured. Fluid was suctioned no other pathology was identified. Secondary trochars were removed under direct visualization. No bleeding was noted trocar sites. The laparoscope withdrawn and the umbilical trocar removed. The abdomen was allowed to collapse. Local anesthesia of 20 mL of 0.5% Marcaine was used at the incision sites. The umbilical trocar site was closed with the [id number] 0 Vicryl suture. The skin was closed using sutures of 4-0 Monocryl and Steri-Strips. The patient was extubated. The patient tolerated the procedure well and was taken to the postanesthesia care unit in satisfactory condition. Complications none
--- NOTE | 2023-11-09 17:21 | DCINST_ITS ---
Discharge Instructions Diet Discharge Diet: Light diet - advance as tolerated Activity Discharge Activity: May Not Drive (while taking narcotic pain medications.) May shower in (days): 1 Lifting Restrictions: no lifting >20 lbs x 2 wks, no strenuous exercise for 4 wks Dressing / Incision Call your doctor if your incision/area has: Continuous Slow Oozing, Sudden Increased Bleeding, Increased Pain/ Swelling, Increased Redness, Foul Smelling Discharge and Swelling at the incision site Call your doctor if you observe: Fever of 101 or Higher Remove Dressing in: 2 days Cleanse incision/area with: Soap & Water Additional Dressing/Incision Instructions:: Steri-Strips will fall off in 7 to 10 days, if they do not fall off okay to remove after 10 days. Follow Up Care Please Follow Up With: Milly Irwin MD When: Call the office for a follow-up appointment 2 weeks; after 5 PM and on the weekends call [phone] with any concerns. Test Results: Test results from this visit will be discussed in further detail at your follow- up appointment, if applicable. Discharge Plan Admission Admit Date/Time: 11/09/23 16:12 Attending Provider: Milly Irwin Primary Care Provider: Paige Willingham Discharge Orders/Prescriptions Prescriptions: New oxycodone-acetaminophen 5-325 mg tablet 1 - 2 tab PO Q6H PRN (Reason: pain) 3 Days Qty: 14 0RF ondansetron 4 mg tablet,disintegrating 4 mg PO Q6H PRN (Reason: nausea and vomiting) Qty: 7 0RF Continued gabapentin 300 mg capsule 300 mg PO Q12H famotidine 20 mg tablet 20 mg PO BID Referrals / Follow Up: Paige Willingham DO [Primary Care Provider] - Disposition Disposition (needs filled in before D/C Order can be placed): Home, Self Care
[2023-11-09] MEDS: Lactated Ringers 1,000 ML 120 ML IV (18:55)
== END 2023-11-09 20:30 | disposition home or self-care (01) ==
LOC: ED 14:28 → MS3 15:57
PROVIDERS: Admitting Provider Surgery; Emergency Provider Emergency Medicine; PCP Family Medicine; Visit Provider Surgery
PROC: 0DTJ4ZZ Resection of Appendix, Percutaneous Endoscopic Approach (ICD-10-PCS; CPT 44970; principal; 2023-11-09 16:30)
DX: K35.80 Unspecified acute appendicitis (principal); Z87.891 Personal history of nicotine dependence; Z79.899 Other long term (current) drug therapy; Z85.3 Personal history of malignant neoplasm of breast; E04.1 Nontoxic single thyroid nodule; K21.9 Gastro-esophageal reflux disease without esophagitis
CPT/HCPCS: 44970; 00840; C1760; 74177; 80048; 80076; 81001; 83690; 85025; 88304; 96374; 96375; 99284; J7030; J7120; Q9967; A4216; J0744; J2405